=== PATIENT | female | born 1990 | race African-American/Black ===

== ENCOUNTER 2018-09-14 12:47 | Observation (INO) | payer MEDICAID ==
[~2018-09-14] VITALS: Ht 170.2 cm; Wt 76.7 kg
[~2018-09-14 12:47] MED LIST: PREN1TAB78 MT
[2018-09-14] MEDS ORDERED: FERR325T6 PO (13:30)
[2018-09-14] MEDS ORDERED: ACETAMINOPHEN 500MG TABLET PO NR (14:00)
[2018-09-14 14:11] LABS: CLARITY URINE CLEAR (CLEAR); COLOR URINE YELLOW (YELLOW); KETONES URINE NEGATIVE (NEGATIVE); LEUKOCYTE ESTERASE URINE 2+ (NEGATIVE); NITRITE URINE NEGATIVE (NEGATIVE); OCCULT BLOOD URINE NEGATIVE (NEGATIVE); PH URINE 7.5 (4.5-8.0); PROTEIN URINE NEGATIVE (NEGATIVE); SPECIFIC GRAVITY URINE 1.003 (1.005-1.030); UROBILINOGEN URINE 0.2 E.U./dL (0.2-1.0)
== END 2018-09-14 15:40 | disposition home or self-care (01) ==
LOC: 8 EST LDRP 12:47
PROVIDERS: ADMIT Obstetrics & Gynecology; ATTEND Obstetrics & Gynecology
DX: O26.892 Other specified pregnancy related conditions, second trimester (principal); R10.30 Lower abdominal pain, unspecified; M54.5 Low back pain; Z3A.27 27 weeks gestation of pregnancy
CPT/HCPCS: 81003; 99281; G0378

== ENCOUNTER 2021-03-09 08:07 | Inpatient (IN) | payer MEDICAID ==
[~2021-03-09] VITALS: Ht 170.2 cm; Wt 77.1 kg
[~2021-03-09 08:07] MED LIST changes: +FERR325T6 PO
[2021-03-09] MEDS ORDERED: MISOPROSTOL 200MCG TABLET VG SCH (08:45)
[2021-03-09] MEDS ORDERED: LACTATED RINGERS 1,000 ML IV SCH (08:45)
[2021-03-09] MEDS ORDERED: METHYLERGONOVINE MALEATE 0.2 MG/ML IM PRN (08:45)
[2021-03-09] MEDS ORDERED: DEXT 5%/LR + PITOCIN 20UNITS/L 1,000 ML IV SCH ×2 (08:45→11:00)
[2021-03-09] MEDS ORDERED: LIDOCAINE HCL 1% 20ML VIAL (Pyxis) INJ INFIL SCH (08:45)
[2021-03-09] MEDS ORDERED: BUTORPHANOL TARTRATE 2 MG/ML VIAL IV PRN (08:45)
[2021-03-09] MEDS ORDERED: NALOXONE HCL 0.4 MG/ML 1ML VIAL IM PRN (08:45)
[2021-03-09] MEDS ORDERED: CARBOPROST TROMETHAMINE 250 MCG/ML AMPUL IM PRN (08:45)
[2021-03-09] MEDS ORDERED: PENICILLIN G POTASSIUM 5 MMU in DEXT 5% WATER 100 ML IV SCH (09:00)
[2021-03-09 09:11] LABS: CLARITY URINE CLEAR (CLEAR); COLOR URINE YELLOW (YELLOW); KETONES URINE NEGATIVE (NEGATIVE); LEUKOCYTE ESTERASE URINE TRACE (NEGATIVE); NITRITE URINE NEGATIVE (NEGATIVE); OCCULT BLOOD URINE NEGATIVE (NEGATIVE); PH URINE 7.5 (4.5-8.0); PROTEIN URINE NEGATIVE (NEGATIVE); SPECIFIC GRAVITY URINE 1.007 (1.005-1.030)
[2021-03-09 09:13] LABS: BASOPHILS % 0.2 % (0.0-2.0); EOSINOPHILS % 1.8 % (0.0-5.0); HEMATOCRIT. 29.8 % (36.0-48.0); LYMPHOCYTES % 22.3 % (20.0-50.0); MEAN CORPUSCULAR HEMOGLOBIN 28.8 pg (28.0-32.0); MEAN CORPUSCULAR VOLUME 85.8 fL (81.0-99.0); MEAN PLATELET VOLUME 9.2 fl (7.4-10.4); MONOCYTES % 10.2 % (2.0-8.0); NEUTROPHILS % 65.5 % (40.0-76.0); PLATELET 188 x1000/uL (130-400); RED BLOOD CELL COUNT 3.47 mill/uL (4.2-5.4); RED CELL DISTRIBUTION WIDTH 15.6 % (11.6-14.6)
[2021-03-09] MEDS ORDERED: ROPIVACAINE HCL/PF EPIDURAL 200 ML EPI SCH (09:15)
[2021-03-09 09:19] LABS: INR 0.9; PARTIAL THROMBOPLASTIN TIME 26.2 sec (23.4-31.0)
[2021-03-09] MEDS ORDERED: FENTANYL CITRATE/PF 50MCG/ML 2ML VIAL ONE (09:29)
[2021-03-09 09:33] LABS: *AMPHETAMINES SCREEN URINE NEGATIVE (NEGATIVE); *BARBITURATES SCREEN URINE NEGATIVE (NEGATIVE); *BENZODIAZEPINES SCREEN URINE NEGATIVE (NEGATIVE)
[2021-03-09 09:34] LABS: *COCAINE SCREEN URINE NEGATIVE (NEGATIVE); CANNABINOID URINE SCREEN NEGATIVE (NEGATIVE); METHADONE URINE SCREEN NEGATIVE (NEGATIVE); OPIATES URINE SCREEN NEGATIVE (NEGATIVE); PHENCYCLIDINE URINE SCREEN NEGATIVE (NEGATIVE)
[2021-03-09] MEDS ORDERED: BENZOCAINE/LANOLIN/ALOE VERA SPRAY TOP PRN (11:00)
[2021-03-09] MEDS ORDERED: IBUPROFEN 400MG TABLET PO PRN (11:00)
[2021-03-09] MEDS ORDERED: DIPHENHYDRAMINE 25MG CAPSULE PO PRN (11:00)
[2021-03-09] MEDS ORDERED: GLYCERIN/WITCH HAZEL LEAF MEDICATED PAD TOP PRN (11:00)
[2021-03-09] MEDS ORDERED: HEMORRHOIDAL SUPP PR PRN (11:00)
[2021-03-09] MEDS ORDERED: ACETAMINOPHEN WITH CODEINE 300/30MG TABLET PO PRN (11:00)
[2021-03-09] MEDS ORDERED: BISACODYL 10MG SUPP PR PRN (11:00)
[2021-03-09] MEDS ORDERED: RHO(D) IMMUNE GLOBULIN 300 MCG/SYR IM PRN (11:00)
[2021-03-09] MEDS: SIMETHICONE 80MG TABLET CHEW PO SCH ×3 (12:34→21:00)
[2021-03-09] MEDS: IBUPROFEN 800MG TABLET PO PRN ×2 (12:34→22:46)
[2021-03-09 12:40] VITALS: BP 122/65
[2021-03-09] MEDS ORDERED: PENICILLIN G POTASSIUM 2.5 MMU in DEXTROSE 5% WATER 50 ML IV SCH (13:00)
[2021-03-09] MEDS ORDERED: MAGNESIUM/ALUMINUM HYDROXIDE/SIMETHICONE 30ML UDC PO SCH (13:00)
[2021-03-09 13:10] VITALS: BP 111/88
[2021-03-09 20:00] VITALS: BP 110/66
[2021-03-09] MEDS ORDERED: DOCUSATE SODIUM 100MG CAPSULE PO SCH (21:00)
[2021-03-10 04:00] VITALS: BP 100/58
[2021-03-10 07:19] LABS: BASOPHILS % 0.4 % (0.0-2.0); EOSINOPHILS % 1.7 % (0.0-5.0); HEMOGLOBIN. 9.4 g/dL (12.0-16.0); LYMPHOCYTES % 26.6 % (20.0-50.0); MEAN CORPUSCULAR HEMOGLOBIN 28.9 pg (28.0-32.0); MEAN CORPUSCULAR VOLUME 85.8 fL (81.0-99.0); MEAN PLATELET VOLUME 9.5 fl (7.4-10.4); MONOCYTES % 12.1 % (2.0-8.0); NEUTROPHILS % 59.2 % (40.0-76.0); PLATELET 173 x1000/uL (130-400); RED BLOOD CELL COUNT 3.26 mill/uL (4.2-5.4); RED CELL DISTRIBUTION WIDTH 15.6 % (11.6-14.6)
[2021-03-10] MEDS: FERROUS SULFATE 325MG TABLET PO SCH ×2 (07:30→12:30)
[2021-03-10 07:46] VITALS: BP 106/69
[2021-03-10] MEDS: SIMETHICONE 80MG TABLET CHEW PO SCH (08:00)
[2021-03-10] MEDS ORDERED: PRENATAL VIT/FE FUMARATE/FA TABLET PO SCH (09:00)
[2021-03-10] MEDS ORDERED: IBUP-2030 PO (09:41)
[2021-03-10 10:27] VITALS: BP 106/69
[2021-03-10] MEDS: IBUPROFEN 800MG TABLET PO PRN (10:27)
== END 2021-03-10 14:20 | disposition home or self-care (01) | DRG 560 ==
LOC: OBSVTOIN → 8 EST LDRP 08:07 → 8EST 13:04
PROVIDERS: ADMIT Obstetrics & Gynecology; ATTEND Obstetrics & Gynecology
PROC: 10E0XZZ Delivery of Products of Conception, External Approach (ICD-10-PCS; principal; 2021-03-09)
PROC: 0KQM0ZZ Repair Perineum Muscle, Open Approach (ICD-10-PCS; 2021-03-09)
PROC: 3E0R3BZ Introduction of Anesthetic Agent into Spinal Canal, Percutaneous Approach (ICD-10-PCS; 2021-03-09)
PROC: 00HU33Z Insertion of Infusion Device into Spinal Canal, Percutaneous Approach (ICD-10-PCS; 2021-03-09)
DX: O77.0 Labor and delivery complicated by meconium in amniotic fluid (principal); O70.1 Second degree perineal laceration during delivery; Z37.0 Single live birth; Z3A.39 39 weeks gestation of pregnancy
CPT/HCPCS: 36415; 80305; 81003; 85025; 86592; 86703; 86850; 86900; J2540; J2590; J3010; J7060

== ENCOUNTER 2021-12-18 18:50 | Emergency (ER) | payer MEDICAID ==
[~2021-12-18] VITALS: Ht 172.7 cm; Wt 80.0 kg
[~2021-12-18 18:50] MED LIST changes: +IBUP-2030 PO
[2021-12-18 19:01] VITALS: BP 125/90
[2021-12-18] MEDS ORDERED: IPRATROPIUM BROMIDE (0.02%) 0.5MG/2.5ML NEB HHN ONE (19:30)
[2021-12-18] MEDS ORDERED: ALBUTEROL (0.083%) 2.5MG/3ML NEB HHN ONE (19:30)
[2021-12-18] MEDS ORDERED: PREDNISONE 20MG TABLET PO ONE (19:30)
[2021-12-18 20:48] LABS: BASOPHILS % 0.3 % (0.0-2.0); EOSINOPHILS % 2.9 % (0.0-5.0); HEMATOCRIT. 34.8 % (36.0-48.0); HEMOGLOBIN. 11.7 g/dL (12.0-16.0); LYMPHOCYTES % 23.6 % (20.0-50.0); MEAN CORPUSCULAR HEMOGLOBIN 30.5 pg (28.0-32.0); MEAN PLATELET VOLUME 8.1 fl (7.4-10.4); MONOCYTES % 8.3 % (2.0-8.0); NEUTROPHILS % 64.9 % (40.0-76.0); PLATELET 265 x1000/uL (130-400); RED BLOOD CELL COUNT 3.82 mill/uL (4.2-5.4); RED CELL DISTRIBUTION WIDTH 13.4 % (11.6-14.6)
[2021-12-18 21:06] LABS: CHLORIDE 105 mEq/L (98-107)
[2021-12-18 21:13] LABS: ETHANOL BLOOD < 10 mg/dL
[2021-12-18] MEDS ORDERED: ALBU2.5V13 NEB (21:18)
[2021-12-18] MEDS ORDERED: ALBU6.7H9 INH (21:18)
[2021-12-18] MEDS ORDERED: P20 MT (21:18)
[2021-12-18] MEDS ORDERED: POTA20TA82 MT (21:42)
[2021-12-18] MEDS ORDERED: POTASSIUM CHLORIDE 20MEQ TABLET SR PO NR (22:00)
== END 2021-12-18 23:11 | disposition home or self-care (01) ==
LOC: ER 18:50
DX: J45.901 Unspecified asthma with (acute) exacerbation (principal); R00.0 Tachycardia, unspecified; E87.6 Hypokalemia
CPT/HCPCS: 36415; 71045; 80053; 80320; 81025; 83880; 84484; 85025; 93005; 94640; 99285; J7512; Z7610; G0480

== ENCOUNTER 2022-03-12 13:42 | Emergency (ER) | payer MEDICAID ==
[~2022-03-12] VITALS: Ht 167.6 cm; Wt 69.0 kg
[~2022-03-12 13:42] MED LIST changes: +ALBU2.5V13 NEB; +ALBU6.7H9 INH; +P20 MT; +POTA-204 MT
[2022-03-12 13:50] VITALS: BP 124/72
[2022-03-12] MEDS ORDERED: ACETAMINOPHEN 325MG TABLET PO STA (14:04)
[2022-03-12] MEDS ORDERED: VISCOUS LIDOCAINE 2% 15 ML UDC PO STA (14:04)
[2022-03-12] MEDS ORDERED: ONDANSETRON HCL 4MG/2ML INJ IV STA (14:04)
[2022-03-12] MEDS ORDERED: MAGNESIUM/ALUMINUM HYDROXIDE/SIMETHICONE 30ML UDC PO STA (14:04)
[2022-03-12] MEDS ORDERED: SODIUM CHLORIDE 0.9% 1,000 ML IV ONE (14:15)
[2022-03-12 15:26] LABS: BASOPHILS % 0.5 % (0.0-2.0); EOSINOPHILS % 3.5 % (0.0-5.0); HEMATOCRIT. 35.9 % (36.0-48.0); HEMOGLOBIN. 12.3 g/dL (12.0-16.0); LYMPHOCYTES % 31.5 % (20.0-50.0); MEAN CORPUSCULAR HEMOGLOBIN 30.8 pg (28.0-32.0); MEAN PLATELET VOLUME 8.4 fl (7.4-10.4); MONOCYTES % 8.4 % (2.0-8.0); NEUTROPHILS % 56.1 % (40.0-76.0); PLATELET 316 x1000/uL (130-400); RED BLOOD CELL COUNT 3.99 mill/uL (4.2-5.4); RED CELL DISTRIBUTION WIDTH 13.5 % (11.6-14.6)
[2022-03-12 15:31] LABS: CHLORIDE 105 mEq/L (98-107)
[2022-03-12 15:35] LABS: INR 0.9; PROTHROMBIN TIME 10.2 sec (9.6-11.0)
[2022-03-12 15:51] LABS: ETHANOL BLOOD < 10 mg/dL
[2022-03-12 15:55] LABS: B-HCG QUANTITATIVE 69562 mIU/mL (<3); HCG SCREEN POSITIVE
[2022-03-12] MEDS ORDERED: ONDANSETRON HCL 4MG/2ML INJ IV NR (16:15)
[2022-03-12] MEDS ORDERED: ACETAMINOPHEN 325MG TABLET PO NR (16:15)
[2022-03-12] MEDS ORDERED: MAGNESIUM/ALUMINUM HYDROXIDE/SIMETHICONE 30ML UDC PO NR (16:15)
[2022-03-12] MEDS ORDERED: METO5TAB86 MT (16:26)
[2022-03-12] MEDS ORDERED: MAG-55 MT (16:26)
[2022-03-12 18:08] LABS: CLARITY URINE CLEAR (CLEAR); COLOR URINE YELLOW (YELLOW); KETONES URINE 1+ (NEGATIVE); LEUKOCYTE ESTERASE URINE NEGATIVE (NEGATIVE); NITRITE URINE NEGATIVE (NEGATIVE); OCCULT BLOOD URINE NEGATIVE (NEGATIVE); PROTEIN URINE NEGATIVE (NEGATIVE); SPECIFIC GRAVITY URINE 1.019 (1.005-1.030)
[2022-03-12 18:22] LABS: *AMPHETAMINES SCREEN URINE NEGATIVE (NEGATIVE); *BARBITURATES SCREEN URINE NEGATIVE (NEGATIVE); *BENZODIAZEPINES SCREEN URINE NEGATIVE (NEGATIVE); *COCAINE SCREEN URINE NEGATIVE (NEGATIVE); CANNABINOID URINE SCREEN NEGATIVE (NEGATIVE); METHADONE URINE SCREEN NEGATIVE (NEGATIVE); OPIATES URINE SCREEN NEGATIVE (NEGATIVE); PHENCYCLIDINE URINE SCREEN NEGATIVE (NEGATIVE)
== END 2022-03-12 18:43 | disposition home or self-care (01) ==
LOC: ER 14:22
DX: O26.891 Other specified pregnancy related conditions, first trimester (principal); R10.13 Epigastric pain; R07.9 Chest pain, unspecified; J45.909 Unspecified asthma, uncomplicated; Z3A.01 Less than 8 weeks gestation of pregnancy
CPT/HCPCS: 36415; 71045; 76801; 76817; 80053; 80305; 80320; 81003; 81025; 83690; 84484; 84702; 84703; 85025; 85610; 86850; 86900; 86901; 93005; 99285; J2405; J7030; G0480